=== PATIENT | male | born 1950 | race Caucasian/White ===

== ENCOUNTER 2016-08-09 14:25 | Outpatient (CLI) | payer OTHER ==
--- NOTE | 2016-08-09 15:23 | DIAGNOSTIC IMAGING REPORT ---
PROCEDURE: XR CHEST 2 VIEW INDICATION: COUGH, initial encounter TECHNIQUE: PA and lateral view. COMPARISON: None. FINDINGS: Hyperinflation. Right upper lobe scarring. Cardiovascular structures are normal. Old right rib fractures. IMPRESSION: 1. No acute changes 2. COPD with mild right upper lobe scarring
== END 2016-08-09 23:00 ==
LOC: XR SRH 14:25
DX: J44.9 Chronic obstructive pulmonary disease, unspecified (principal)